=== PATIENT | male | born 1965 | race Caucasian/White ===

== ENCOUNTER 2019-06-26 11:43 | Emergency (ER) | payer OTHER ==
[~2019-06-26] VITALS: Ht 172.7 cm; Wt 95.3 kg
[~2019-06-26 11:43] MED LIST: ALLOPURINOL100 M1 ORAL; CLINDAMYCIN HC300 MG ORAL; IBUPROFEN600 MG ORAL; SIMVASTATIN5 MG ORAL
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
[2019-06-26 12:02] VITALS: BP 132/85
[2019-06-26] MEDS ORDERED: Methocarbamol 750mg tab ORAL ONE (12:15)
[2019-06-26] MEDS ORDERED: ROBAXIN-750750 MG PO (13:28)
[2019-06-26] MEDS ORDERED: NORCO 5-325 TA1 EACH ORAL (13:28)
[2019-06-26] MEDS ORDERED: IBUPROFEN600 MG ORAL (13:28)
[2019-06-26 13:33] VITALS: BP 130/78
--- NOTE | 2019-06-26 13:33 | NUR ---
ER DISCHARGE NOTE: Patient is cleared to be discharged per ERMD, pt is aox4, on room air, with stable vital signs. pt was given dc and prescription instructions, pt was able to verbalize understanding, pt id band removed without complications. pt is able to ambulate with steady gait. pt took all belongings.
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
--- NOTE | 2019-06-27 16:10 | Diagnostic Imaging Report ---
Indication: Trauma, pain Technique: 3 views of the left shoulder Comparison: none Findings: No acute fractures. No dislocations. The joint spaces are preserved Impression: Negative
--- NOTE | 2019-06-27 16:25 | Diagnostic Imaging Report ---
Indication: Trauma, pain Technique: 3 views right hand Comparison: none Findings: No acute fractures. No dislocations. The joint spaces are preserved. A tiny cyst is seen in the upper pole of the scaphoid. Impression: No acute bony trauma
--- NOTE | 2019-06-27 16:26 | Diagnostic Imaging Report ---
Indication: Chest pain, trauma Technique: One view of the chest Comparison: none Findings: Lungs and pleural spaces are clear. The heart size is upper limits normal. The bones are intact Impression: No acute process
== END 2019-06-26 13:55 | disposition home or self-care (01) ==
LOC: EMR 13:05
DX: M25.512 Pain in left shoulder (principal); S50.312A Abrasion of left elbow, initial encounter; S80.811A Abrasion, right lower leg, initial encounter; R07.9 Chest pain, unspecified; T14.8XXA Other injury of unspecified body region, initial encounter; V19.9XXA Pedal cyclist (driver) (passenger) injured in unspecified traffic accident, initial encounter; Z88.0 Allergy status to penicillin; Y92.9 Unspecified place or not applicable
CPT/HCPCS: 71045; 99284